=== PATIENT | female | born 1965 | race Hispanic/Latino ===

== ENCOUNTER 2024-05-19 13:17 | Inpatient (IN) | payer BC ==
[~2024-05-19] VITALS: Ht 172.7 cm; Wt 65.8 kg
[2024-05-19 14:01] LABS: BASOPHILS # (AUTO) 0.1 (0.0-0.1); BASOPHILS % 0.9 % (0.0-1.0); EOSINOPHILS # (AUTO) 0.4 (0.0-0.4); EOSINOPHILS % 2.7 % (0.0-6.0); HEMATOCRIT 43.4 % (34.2-44.1); HEMOGLOBIN 14.4 g/dL (12.0-16.0); LYMPHOCYTES # (AUTO) 2.7 (1.0-3.2); LYMPHOCYTES % 19.6 % (18.0-39.1); MEAN CORPUSCULAR HEMOGLOBIN 28.5 pg (28-32); MEAN CORPUSCULAR HGB CONC 33.2 g/dL (31-35); MEAN CORPUSCULAR VOLUME 85.8 fL (81-99); MONOCYTES # (AUTO) 0.9 (0.2-0.8); MONOCYTES % 6.5 % (4.4-11.3); NEUTROPHILS # (AUTO) 9.8 (2.1-6.9); NEUTROPHILS % 69.9 % (38.7-80.0); PLATELET COUNT 291 x10e3/uL (140-360); RED BLOOD COUNT 5.06 x10e6/uL (3.6-5.1); RED CELL DISTRIBUTION WIDTH 13.1 % (11.7-14.4); WHITE BLOOD COUNT 13.95 x10e3/uL (4.8-10.8)
[2024-05-19 14:10] LABS: CLARITY,URINE CLEAR (CLEAR); COLOR,URINE YELLOW (YELLOW)
[2024-05-19 14:11] LABS: BILIRUBIN,URINE NEGATIVE (NEGATIVE); GLUCOSE, URINE 500 (NEGATIVE); KETONES,URINE TRACE (NEGATIVE); LEUKOCYTE ESTERASE ,URINE SMALL (NEGATIVE); NITRITE,URINE NEGATIVE (NEGATIVE); PH,URINE 5.5 (5 - 7); PROTEIN,URINE DIPSTICK NEGATIVE (NEGATIVE); URINE UROBILINOGEN 0.2 mg/dL (0.2 - 1)
[2024-05-19 14:16] LABS: BACTERIA,URINE MODERATE /HPF; EPITHELIAL CELLS,URINE MODERATE /LPF; RBC,URINE 0-5 /HPF (0-5); YEAST,URINE FEW
[2024-05-19 14:28] LABS: ALBUMIN 4.3 g/dL (3.5-5.0); ALBUMIN/GLOBULIN RATIO 1.4 (0.8-2.0); ANION GAP 21.4 mmol/L (8-16); BILIRUBIN,TOTAL 0.9 mg/dL (0.2-1.2); CALCIUM 9.6 mg/dL (8.4-10.2); CREATININE, SERUM 0.78 mg/dL (0.57-1.11); TOTAL PROTEIN 7.3 g/dL (6.5-8.1)
[2024-05-19 14:29] LABS: MAGNESIUM 1.3 MG/DL (1.3-2.1)
[2024-05-19 14:35] LABS: POTASSIUM 3.4 mmol/L (3.5-5.1)
[2024-05-19 14:37] LABS: TROPONIN I < 0.001 ng/mL (0-0.300)
[2024-05-19] MEDS ORDERED: CEFTRIAXONE 1 GM VIAL ONE (16:39)
[2024-05-19 16:43] VITALS: TEMP 97.2
[2024-05-19] MEDS: KETOROLAC TROMETHAMINE 30 MG/ML VIAL IV STA (17:17)
[2024-05-19 18:30] VITALS: PULSE 95; RESP 20
[2024-05-19] MEDS: FAMOTIDINE 20 MG/2 ML VIAL IV SCH (18:52)
[2024-05-19] MEDS: SODIUM CHLORIDE 0.9% 1000ML 1,000 ML IV SCH (18:52)
[2024-05-19] MEDS ORDERED: LEVOTHYROXINE100 MCG PO (21:52)
[2024-05-19] MEDS ORDERED: OZEMPIC1 MG/0.71 SC (21:52)
[2024-05-19] MEDS ORDERED: ATORVASTATIN CA80 MG PO (21:52)
[2024-05-19] MEDS ORDERED: PANTOPRAZOLE SO40 MG PO (21:52)
[2024-05-19] MEDS ORDERED: CITALOPRAM HBR20 MG PO (21:52)
[2024-05-19] MEDS ORDERED: AMITRIPTYLINE H25 MG PO (21:52)
[2024-05-19] MEDS ORDERED: LOSARTAN-HCTZ1 EAC2 PO (21:52)
[2024-05-19 21:54] VITALS: BP 104/91; PULSE 94; RESP 18; TEMP 98; O2SAT 98
[2024-05-19 21:57] VITALS: BP 100/78; PULSE 94; RESP 18; TEMP 98; O2SAT 98
[2024-05-19 22:10] VITALS: BP 107/70; PULSE 90; RESP 16; TEMP 97.3; O2SAT 98
[2024-05-20] VITALS (10 sets, daily range): BP systolic 100–135; BP diastolic 68–88; PULSE 94–97; RESP 16–19; TEMP 97.7–98.4; O2SAT 90–100
[2024-05-20] MEDS: Morphine 4mg INJECTION 4 MG/ML INJ IV PRN (00:53)
[2024-05-20] MEDS: ONDANSETRON HCL INJ 2MG/ML 2ML 2 MG/ML VIAL IV PRN (00:54)
[2024-05-20 05:52] LABS: BASOPHILS # (AUTO) 0.1 (0.0-0.1); BASOPHILS % 0.9 % (0.0-1.0); EOSINOPHILS # (AUTO) 0.4 (0.0-0.4); EOSINOPHILS % 4.1 % (0.0-6.0); HEMATOCRIT 37.5 % (34.2-44.1); HEMOGLOBIN 12.3 g/dL (12.0-16.0); LYMPHOCYTES # (AUTO) 1.9 (1.0-3.2); LYMPHOCYTES % 21.5 % (18.0-39.1); MEAN CORPUSCULAR HEMOGLOBIN 28.1 pg (28-32); MEAN CORPUSCULAR HGB CONC 32.8 g/dL (31-35); MEAN CORPUSCULAR VOLUME 85.6 fL (81-99); MONOCYTES # (AUTO) 0.6 (0.2-0.8); MONOCYTES % 7.2 % (4.4-11.3); NEUTROPHILS # (AUTO) 5.7 (2.1-6.9); NEUTROPHILS % 65.8 % (38.7-80.0); PLATELET COUNT 196 x10e3/uL (140-360); RED BLOOD COUNT 4.38 x10e6/uL (3.6-5.1); RED CELL DISTRIBUTION WIDTH 12.9 % (11.7-14.4); WHITE BLOOD COUNT 8.69 x10e3/uL (4.8-10.8)
[2024-05-20 06:33] LABS: ALBUMIN 3.6 g/dL (3.5-5.0); ALBUMIN/GLOBULIN RATIO 1.3 (0.8-2.0); ANION GAP 18.7 mmol/L (8-16); BILIRUBIN,TOTAL 0.7 mg/dL (0.2-1.2); CALCIUM 8.7 mg/dL (8.4-10.2); CHOL/HDL RATIO 3.1 (3.0-3.6); CREATININE, SERUM 0.72 mg/dL (0.57-1.11); POTASSIUM 3.7 mmol/L (3.5-5.1); TOTAL PROTEIN 6.3 g/dL (6.5-8.1)
[2024-05-20 06:56] LABS: CREATINE KINASE 47 IU/L (29-168)
[2024-05-20 07:11] LABS: TROPONIN I < 0.001 ng/mL (0-0.300)
[2024-05-20] MEDS: DOCUSATE SODIUM 100 MG CAP PO PRN (11:13)
[2024-05-20 13:36] LABS: CREATINE KINASE 49 IU/L (29-168)
[2024-05-20 13:52] LABS: TROPONIN I < 0.001 ng/mL (0-0.300)
[2024-05-20] MEDS: AMITRIPTYLINE HCL 25 MG TAB PO SCH (20:39)
[2024-05-21] VITALS (7 sets, daily range): BP systolic 112–127; BP diastolic 68–84; PULSE 83–94; RESP 16–18; TEMP 97.9–98.7; O2SAT 95–100
[2024-05-21] MEDS: LEVOTHYROXINE SODIUM 100 MCG TAB PO SCH (05:23)
[2024-05-21 06:07] LABS: BASOPHILS # (AUTO) 0.1 (0.0-0.1); BASOPHILS % 1.2 % (0.0-1.0); EOSINOPHILS # (AUTO) 0.3 (0.0-0.4); EOSINOPHILS % 3.8 % (0.0-6.0); HEMATOCRIT 37.1 % (34.2-44.1); HEMOGLOBIN 12.4 g/dL (12.0-16.0); LYMPHOCYTES # (AUTO) 1.8 (1.0-3.2); LYMPHOCYTES % 23.8 % (18.0-39.1); MEAN CORPUSCULAR HEMOGLOBIN 28.2 pg (28-32); MEAN CORPUSCULAR HGB CONC 33.4 g/dL (31-35); MEAN CORPUSCULAR VOLUME 84.3 fL (81-99); MONOCYTES # (AUTO) 0.6 (0.2-0.8); NEUTROPHILS # (AUTO) 4.8 (2.1-6.9); NEUTROPHILS % 62.8 % (38.7-80.0); PLATELET COUNT 206 x10e3/uL (140-360); RED CELL DISTRIBUTION WIDTH 12.7 % (11.7-14.4); WHITE BLOOD COUNT 7.64 x10e3/uL (4.8-10.8)
[2024-05-21 06:37] LABS: ANION GAP 14.6 mmol/L (8-16); CALCIUM 9.3 mg/dL (8.4-10.2); CREATININE, SERUM 0.6 mg/dL (0.57-1.11); POTASSIUM 3.6 mmol/L (3.5-5.1)
[2024-05-21 07:06] LABS: THYROID STIMULATING HORMONE 2.068 uIU/mL (0.350-4.940)
[2024-05-21] MEDS: ATORVASTATIN 40 MG TAB PO SCH (08:16)
[2024-05-21] MEDS: CITALOPRAM HYDROBROMIDE 20 MG TAB PO SCH (08:16)
[2024-05-21] MEDS: PANTOPRAZOLE SOD 40 MG TABEC PO SCH (08:16)
[2024-05-21 14:22] LABS: INR 0.94; PROTHROMBIN TIME 13.1 seconds (11.9-14.5)
[2024-05-22 03:50] VITALS: BP 119/78; PULSE 80; RESP 18; TEMP 97.9; O2SAT 98
[2024-05-22 08:46] VITALS: BP 123/78; PULSE 83; RESP 20; TEMP 97.6; O2SAT 99
[2024-05-22 12:27] VITALS: BP 115/77; PULSE 89; RESP 20; TEMP 97.8; O2SAT 99
== END 2024-05-22 14:15 | disposition home or self-care (01) | DRG 552 ==
LOC: ER 14:00 → ERHOLD 18:35 → MED/SURG2 21:10
PROVIDERS: ADMIT Internal Medicine; ATTEND Internal Medicine
DX: S32.031A Stable burst fracture of third lumbar vertebra, initial encounter for closed fracture (principal); N39.0 Urinary tract infection, site not specified; E11.9 Type 2 diabetes mellitus without complications; F32.A Depression, unspecified; I10 Essential (primary) hypertension; E86.0 Dehydration; E78.5 Hyperlipidemia, unspecified; M48.061 Spinal stenosis, lumbar region without neurogenic claudication; R55 Syncope and collapse; W18.39XA Other fall on same level, initial encounter; Y92.009 Unspecified place in unspecified non-institutional (private) residence as the place of occurrence of the external cause; Z79.890 Hormone replacement therapy; Z90.49 Acquired absence of other specified parts of digestive tract; Z90.710 Acquired absence of both cervix and uterus; Z91.048 Other nonmedicinal substance allergy status; F17.200 Nicotine dependence, unspecified, uncomplicated
CPT/HCPCS: 36415; 70450; 71046; 72131; 72148; 80048; 80053; 80061; 81001; 82550; 82948; 83036; 83735; 84443; 84484; 85025; 85610; 93005; 93306; 93880; 99284; J0696; J1885; J2270; J2405; J7030

== ENCOUNTER → 2024-06-05 | Outpatient (REF) | payer BC ==
[~2024-06-05] MED LIST: AMITRIPTYLINE H25 MG PO; ATORVASTATIN CA80 MG PO; CITALOPRAM HBR20 MG PO; HYDROCODONE/APAP 5MG-325MG TAB ONE; KETAMINE 50MG/5ML SYR ONE; LEVOTHYROXINE100 MCG PO; LIDOCAINE HCL 1% 30ML-PF VIAL ONE; LIDOCAINE HCL 2% LOCAL INJ 5 ML SDV VIAL INJ ONE; LOSARTAN-HCTZ1 EAC2 PO; MIDAZOLAM HCL 2 MG/2 ML VIAL ONE; OZEMPIC1 MG/0.71 SC; PANTOPRAZOLE SO40 MG PO; PROPOFOL IV EMULSION 10 MG/ML 20 ML VIAL ONE; SODIUM CHLORIDE 0.9% 100 ML ONE; SODIUM CHLORIDE 0.9% 500ML 500 ML ONE
[2024-06-05 14:44] VITALS: TEMP 97.4
[2024-06-05 15:15] VITALS: BP 148/75; PULSE 72; RESP 20; O2SAT 95
== END ==
LOC: RAD 05:00 → OR 10:27 → EDSTATUS 13:00
PROVIDERS: ATTEND Radiology Vascular & Interventional Radiology
DX: S32.031A Stable burst fracture of third lumbar vertebra, initial encounter for closed fracture (principal); M40.10 Other secondary kyphosis, site unspecified
CPT/HCPCS: 36415; 82948; J0690; J2003 ×2; J2250; J2704; J7040; J7050; 22514; 88305; 88311

== ENCOUNTER 2024-07-12 14:42 | Emergency (ER) | payer SELFPAY ==
[~2024-07-12] VITALS: Ht 172.7 cm; Wt 65.8 kg
[~2024-07-12 14:42] MED LIST changes: -HYDROCODONE/APAP 5MG-325MG TAB ONE; -KETAMINE 50MG/5ML SYR ONE; -LIDOCAINE HCL 1% 30ML-PF VIAL ONE; -LIDOCAINE HCL 2% LOCAL INJ 5 ML SDV VIAL INJ ONE; -MIDAZOLAM HCL 2 MG/2 ML VIAL ONE; -PROPOFOL IV EMULSION 10 MG/ML 20 ML VIAL ONE; -SODIUM CHLORIDE 0.9% 100 ML ONE; -SODIUM CHLORIDE 0.9% 500ML 500 ML ONE
[2024-07-12 15:10] VITALS: PULSE 104; RESP 18; TEMP 97.6; O2SAT 95
== END 2024-07-12 17:10 | disposition home or self-care (01) ==
LOC: ER 14:59
DX: S00.83XA Contusion of other part of head, initial encounter (principal); R07.89 Other chest pain; S20.211A Contusion of right front wall of thorax, initial encounter; R51.9 Headache, unspecified; W01.198A Fall on same level from slipping, tripping and stumbling with subsequent striking against other object, initial encounter; Y93.E1 Activity, personal bathing and showering; Y92.89 Other specified places as the place of occurrence of the external cause; I10 Essential (primary) hypertension; E11.9 Type 2 diabetes mellitus without complications; E78.5 Hyperlipidemia, unspecified
CPT/HCPCS: 70450; 71250; 99283